=== PATIENT | female | born 1965 | race African-American/Black ===

== ENCOUNTER 2024-07-28 15:29 | Emergency (ER) | payer SELFPAY | END 2024-07-28 17:36 | disposition left against medical advice (07) | LOC: ERS 15:29 | DX: Z53.21 Procedure and treatment not carried out due to patient leaving prior to being seen by health care provider (principal) ==

== ENCOUNTER 2024-08-01 15:38 | Emergency (ER) | payer SELFPAY ==
[2024-08-01 16:51] LABS: Bacteria/HPF None Seen HPF (None Seen); Bilirubin Negative (Negative); Blood, Urine Negative (Negative); CAUTI Indications for Culture Dysuria,urgency,freq; Clarity Clear (Clear); Glucose, Urine (Dipstick) Normal (Negative); Ketone, Urine Negative (Negative); Leukocyte Negative Leu/uL (Negative); Nitrite Negative (Negative); Protein, Urine (Dipstick) Negative (Neg-Trace); RBC/HPF None Seen HPF (0-3); Specific Gravity, Urine 1.013 (1.002-1.036); Squamous Epithelial 0-3 HPF (0-3); Urobilinogen Normal mg/dL (Less than 2); WBC/HPF 0-3 HPF (0-3); pH, Urine 5.5 (5.0-9.0)
[2024-08-01 16:52] LABS: Urine Culture Reflex No No
[2024-08-01] MEDS ORDERED: Gabapentin 300 MG CAP ONE (17:12)
[2024-08-01] MEDS ORDERED: Ketorolac Tromethamine 30 MG (1 mL) VIAL ONE (17:12)
[2024-08-01] MEDS ORDERED: Pantoprazole 40 MG DR.TAB ONE (18:36)
== END 2024-08-01 18:45 | disposition home or self-care (01) ==
LOC: ERS 15:38
DX: G89.29 Other chronic pain (principal); R29.700 NIHSS score 0; E11.9 Type 2 diabetes mellitus without complications; E78.5 Hyperlipidemia, unspecified; Z79.84 Long term (current) use of oral hypoglycemic drugs
CPT/HCPCS: 81001; 96372; 99283; J1885